=== PATIENT | female | born 1960 | race Caucasian/White ===

== ENCOUNTER 2025-05-17 18:55 | Emergency (ER) | payer MEDICARE, SELFPAY ==
--- OUTSIDE RECORDS SUMMARY | 2024-11-04 07:45 | XMS_ITS ---
Author Organization [facility] Address [address] [place] [address] Care Team Providers Care Dental Surgery Doctor Name Role Phone Ernie Ramirez Primary Care Provider Anya Foreman [phone] REASON FOR VISIT 6 mo per 06/06/24 tobbia ov/lg Encounters Encounter Location Date Provider Diagnosis [facility] [address] [place] [address], [place] [address] 11/04/2024 Anya Foreman Plan Of Treatment Next Appt Details Provider Name:Ernie Vega , 11/06/2025 01:00:00 PM, [address] [facility], [facility] [[email or web address] [address], [place], [id number], History and Physical Notes * HPI (History of Present Illness) Category Sub-Category Detail Notes Category Not es Provider Note Ms. Dover is a 64-year-old female with hypertension, hyperlipidemia, CAD status post [place] (2016), prior CVA, chronic atrial fibrillation, a thoracic aortic aneurysm, moderate to severe tricuspid regurgitation, moderate mitral regurgitation, and COPD. She returns today for a routine follow up. Previous testing: January 2022 treadmill Cardiolite showed a small area of ischemia in the anterior wall vs breast tissue artifact--EF 76%. June 2022 coronary calcium score was 612.4--269.3 in the RCA, 174.8 in the circumflex, and 168.2 in the LAD. Progress Notes * November VDOB: (65 yo F)Acc No.[id number]:11/04/2024 Progress Notes Patient: Shelbi souzaNovember Provider: Alan Foreman APN DOB:1960 A ge:64 Y S ex:Female Date:11/04/2024 Address:[address] [place] [address], [place], [id number] Pcp:Ernie Ramirez Subjective: * Chief Complaints: * 6 mo per 06/06/24 tobbia ov/lg * HPI: P rovider Note: Ms. Dover is a 64-year-old female with hypertension, hyperlipidemia, CAD status post [place] (2016), prior CVA, chronic atrial fibrillation, a thoracic aortic aneurysm, moderate to severe tricuspid regurgitation, moderate mitral regurgitation, and COPD. She returns today for a routine follow up. Previous testing: January 2022 treadmill Cardiolite showed a small area of ischemia in the anterior wall vs breast tissue artifact--EF 76%. June 2022 coronary calcium score was 612.4--269.3 in the RCA, 174.8 in the circumflex, and 168.2 in the LAD. Billing Information: * Procedure Codes: Care Plan Details* * Electronic signature of Joe Foreman APN on 05/17/2025 at 06:59 PM [employer] Sign off status: Pending * Provider: Alan Foreman APN Date: 0 11/04/2024 Generated for Danyell jewell/Duc/Darlinitting on: 07/18/2024 06:59 PM [employer]
[2025-05-17] VITALS (8 sets, daily range): BP systolic 105–135; BP diastolic 57–87; PULSE 70–85; RESP 12–23; TEMP 36.5; O2SAT 91–100; BMI 33.0
--- OUTSIDE RECORDS SUMMARY | 2025-05-17 18:59 | XMS_ITS | Patient Health Record ---
Author Organization [facility] Address [address] [address] Care Team Providers Care Cultural Centre Manager Name Role Phone Ernie Ramirez Primary Care Provider [phone] Umer Worthington Unavailable [phone] KellenAnya gandara Unavailable [phone] Allergies Allergen (clinical drug ingredient) Drug/Non Drug Allergy documented on EMR Reaction Allergy Type Onset Date Status ciprofloxacin Cipro angioedema Drug Allergy Ac tive rosuvastatin Rosuvastatin Myalgia Drug Allergy A ctive Results Component Value Reference Range Notes Influenza A/B - 12731 Reviewed date:08/01/2024 02:58:39 PM Interpretation: Performing Lab: Notes/Report: A - B - COVID-19 RAPID - [id number] Reviewed date:08/01/2024 03:17:49 PM Interpretation: Performing Lab: Notes/Report: COVID19 - Schedule Confirmation Reviewed date:05/01/2024 02:26:09 PM Interpretation: Performing Lab: Notes/Report: Bone Densitometry UA Dip / Urinalysis, Routine , Manual - [id number] Reviewed date:10/24/2024 04:43:36 PM Interpretation: Performing Lab: Notes/Report: Color yello Clarity slightlycloudy Glucose - Bilirubin - Ketones - Specific Mayo 1.015 Blood - pH 6.0 Protein - Urobilinogen,Semi-Qn - Nitrite, Urine - Leukocytes 1+ Reason For Referral Reason CAD, HFpEF please send referral to Dr Cj Katz, Cardiology in [place], [place] at [facility]. fax [phone] Diagnosis 1 Coronary artery dise ase involving seminole coronary artery of seminole heart with other form of angina pectoris (I25.118) Referral Organization [facility] Referring Provider First Name Ernie Referring Provider Last Name James Referring Provider [facility] shy[facility] or Group Practice Referral Priority Routine Reason CAD with angina, sev ere tricuspid regurgitation please send to [facility] per patient request. Diagnosis 1 Chest pain, unspecif ied type (R07.9) Referral Organization [facility] Referring Provider First Name Ernie Referring Provider Last Name James Referring Provider [facility] shyam Referred Provider [facility], Cardiology Referred Provider Specialty Cardiology Referral Priority Routine Medications Medication SIG (Take, Route, Frequency, Duration) Notes Start Date End Date Status Eliquis 5 MG Tablet 1 tablet Orally twice a day; Duration: 90 days Active DULoxetine HCl 60 MG Capsule Delayed Release Particles TAKE 1 CAPSULE BY MOUTH EVERY DAY Orally Once a day; Duration: 90 days Not-Taking Nitroglycerin 0.4 MG Tablet Sublingual 1 tablet under the tongue and allow to dissolve as needed. Take every 5 minutes up to 3 times if chest pain persists Sublingual Three times a day Active Vitamin D3 25 MCG (1000 UT) Tablet 1 tablet Orally Once a day Not-Taking Super B Complex Not- Taking Losartan Potassium 50 MG Tablet 1 tablet Orally daily; Duration: 90 days Active Pravastatin Sodium 80 MG Tablet 1 tablet Orally Once a day; Duration: 90 days 10/24/2024 Not-Taking Magnesium 250 MG Tablet 1 tablet with a meal Orally Once a day Not-Taking Colchicine 0.6 MG Tablet 2 tablets on first day, then 1 tablet a day thereafter Orally; Duration: 10 days 12/31/2024 Not-Taking Vitamin C 500 MG Capsule as directed Orally Active Vitamin B 12 500 MCG Tablet 2 tablet Orally Once a day Active Furosemide 40 MG Tablet 1 tablet as needed for 3 lb weight gain Orally Once a day; Duration: 30 days Active Osteo Bi-Flex One Per Day Active Potassium Chloride ER 10 mEq Capsule Extended Release TAKE ONE CAPSULE BY MOUTH EVERY DAY; Duration: 90 Unknown Albuterol Sulfate HFA 108 (90 Base) MCG/ACT Aerosol Solution 2 puffs as needed Inhalation every 4 -6hrs; Duration: 30 days prn Active Acetaminophen 325 MG Tablet 2 tablet as needed Orally every 6 hrs Active Linzess 72 MCG Capsule TAKE 1 capsule at least 30 minutes before the first meal of the day on an empty stomach Orally Once a day 30 days prn. Patient stated that if she doesn't eat in the morning, she doesn't take it. Not-Taking Metoprolol Tartrate 25 mg Tablet TAKE ONE TABLET BY MOUTH TWICE DAILY Active Co Q-10 Maximum Strength Active Isosorbide Mononitrate 20 MG Tablet Take 1 tablet by mouth twice daily Active Centrum Adult 50+ MultiGummies - Tablet Chewable as directed Orally Active Aspirin 81 MG Tablet Chewable 1 tablet Orally Once a day Active Immunizations Vaccine Route Administration Date Status Comments COVID-19 Vaccine (Moderna) Booster Unknown 06/09/2021 Administered COVID-19 Vaccine (Moderna) Dose #1 Unknown 08/20/2020 Administered COVID-19 Vaccine (Moderna) Dose #2 Unknown 09/17/2020 Administered Flucelvax IM Intramuscular 06/24/2020 Administered [facility] # 06600-627-92 Flucelvax Quadrivalent IM Intramuscular 03/22/2022 Administered [facility]#41110-488-89 Received verbal consent for vaccine from patient. No contraindications Influenza (whole), CPT 90853 Inactive Unknown 03/05/2016 Administered Influenza (whole), CPT 29252 Inactive Unknown 04/01/2019 Administered Social History Tobacco Use: Social History Observation Description Date Details (start date - stop date) Former Smoker NA - NA Social History Depression Screening Social Info Question Answer Notes depression screening findings Findings Positive (5+ without suicidality) PHQ-9 Little interest or pleasure in doing things Several days Feeling down, depressed, or hopeless Several day s Trouble falling or staying asleep, or sleeping t oo much Several days Feeling tired or having little energy More than half the days Poor appetite or overeating More than half the d ays Feeling bad about yourself, or that you are a failure, or have let yourself or your family down Several days Trouble concentrating on thi ngs, such as reading the newspaper or watching television Not at all Moving or speaking so slowly that other people could have noticed. Or the opposite ? being so fidgety or restless that you have been moving around a lot more than usual Not at all Thoughts that you would be b rigo off , or of hurting yourself in some way Not at all Total Score 8 Interpretation Mild Depression Drugs/Alcohol: Social Info Question Answer Notes Alcohol Screen (Audit-C) Did you have a drink containing alcohol in the past year? No Points 0 Interpretation Negative Drugs Have you used drugs other than those for medical reasons in the past 12 months? No Comprehensive Health Assessm ent Social Info Question Answer Notes *Social Determinants of Health Has lack of transportation kept you from medical appointments, meetings, work or from getting things needed for daily living? Yes it has kept me from medical appointments or from getting my medications Recently, have you worried t hat your food would run out before you got money to buy more? Yes, but we were able to find enough food to get through Do you feel physically and e motionally safe where you currently live? No Are you worried about losing your housing? No Tobacco Use: Social Info Question Answer Notes Tobacco Control (Standard) Tobacco use: Former smoker How long has it been since you last smoked? 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 ; Section Notes: caffeine - Coffee alcohol - occasional Smoked 1 pack of cigrrets a week for 2 years. quit 43 years old caffeine - Coffee alcohol - occasional caffeine - Coffee alcohol - occasional caffeine - Coffee alcohol - occasional caffeine - Coffee alcohol - occasional caffeine - caffeine - Coffee caffeine - Coffee alcohol - occasional caffeine - caffeine - caffeine - Coffee alcohol - occasional caffeine - Coffee alcohol - occasional caffeine - Coffee alcohol - occasional Smoked 1 pack of cigrrets a week for 2 years. quit 43 years old caffeine - Coffee alcohol - occasional Smoked 1 pack of cigrrets a week for 2 years. quit 43 years old caffeine - Coffee alcohol - occasional Smoked 1 pack of cigrrets a week for 2 years. quit 43 years old caffeine - Coffee alcohol - occasional Smoked 1 pack of cigrrets a week for 2 years. quit 43 years old caffeine - caffeine - Coffee alcohol - occasional caffeine - Coffee alcohol - occasional caffeine - caffeine - Coffee alcohol - occasional Smoked 1 pack of cigrrets a week for 2 years. quit 43 years old caffeine - Coffee alcohol - occasional caffeine - Coffee alcohol - occasional caffeine - Coffee alcohol - occasional Smoked 1 pack of cigrrets a week for 2 years. quit 43 years old caffeine - Coffee alcohol - occasional Smoked 1 pack of cigrrets a week for 2 years. quit 43 years old caffeine - Coffee alcohol - occasional caffeine - Coffee alcohol - occasional caffeine - Coffee alcohol - occasional Problems Problem Type SNOMED Code ICD Code Onset Dates Problem Status W/U Status Risk Notes Problem Anemia due to chronic blood loss (disorder) (459604745) Iron deficiency anemia secondary to blood loss (chronic) (D50.0) Active confirmed Problem Obesity due to excess calories (002231821) Other obesity due to excess calories (E66.09) Active confirmed Problem Hypertensive heart failure (50187824) Hypertensive heart disease with heart failure (I11.0) Active confirmed Problem Gastro-esophageal reflux disease without esophagitis (340613882) Gastro-esophageal reflux disease without esophagitis (K21.9) Active confirmed Problem Pain of right shoulder region (finding) (5158199725) Pain in right shoulder (M25.511) Active confirmed Problem Fibromyalgia (680185390) Fibromyalgia (M79.7) Active confirmed Problem Long-term current use of anticoagulant (427049598) superintendent container terminal (current) use of anticoagulants (Z79.01) Active confirmed Problem Irritable bowel syndrome characterized by constipation (464530492) Irritable bowel syndrome with constipation (K58.1) Active confirmed Problem Permanent atrial fibrillation (239950545) Permanent atrial fibrillation (I48.21) Active confirmed Problem Essential hypertension (57297331) Essential hypertension (I10) Active confirmed Problem Persistent atrial fibrillation (586774049) Persistent atrial fibrillation (I48.19) Active confirmed Problem Localized, secondary osteoarthritis of the shoulder region (187806629) Post-traumatic osteoarthritis of left shoulder (M19.112) Active confirmed Problem Chronic atrial fibrillation (496081200) Chronic atrial fibrillation (I48.20) Active confirmed Problem Atherosclerotic heart disease of seminole coronary artery without angina pectoris (065070387043047) Coronary artery disease involving seminole coronary artery of seminole heart without angina pectoris (I25.10) Active confirmed Problem Chest pain (84287527) Chest pain, unspecified type (R07.9) Active confirmed Problem Cerebrovascular accident (007000896) Cerebrovascular accident (CVA), unspecified mechanism (I63.9) Active confirmed Problem Tricuspid valve disorder (84127889) Severe tricuspid regurgitation (I07.1) Active confirmed Problem Bipolar disorder (84263178) Bipolar affective disorder, remission status unspecified (F31.9) Active confirmed Problem Mild intermittent asthma (942514428) Mild intermittent asthma in adult without complication (J45.20) Active confirmed Problem Low back pain (finding) (014559791) Low back pain without sciatica, unspecified back pain laterality, unspecified chronicity (M54.5) Active confirmed Problem Atherosclerotic heart disease of seminole coronary artery without angina pectoris (527889997379473) Arteriosclerosis of coronary artery (I25.10) Active confirmed Problem Urinary incontinence (615219565) Urinary incontinence in female (R32) Active confirmed Problem Hyperlipidemia (86012199) Hyperlipidemia (E78.5) Active confirmed Problem Solitary pulmonary nodule (059299023) Solitary pulmonary nodule on lung CT (R91.1) Active confirmed Problem Long-term current use of anticoagulant (686531664) Anticoagulated (Z79.01) Active confirmed Problem Angina co-occurrent and due to coronary arteriosclerosis (75160214692420423) Coronary artery disease involving seminole coronary artery of seminole heart with other form of angina pectoris (I25.118) Active confirmed Problem Mitral valve disorder (30981004) Moderate mitral regurgitation (I34.0) Active confirmed Problem Tricuspid valve disorder (54981285) Moderate tricuspid regurgitation (I07.1) Active confirmed Problem Thoracic aortic aneurysm without rupture (disorder) (49244719) Thoracic aneurysm without mention of rupture (I71.20) Active confirmed Problem Chronic diastolic heart failure (128521643) Chronic heart failure with preserved ejection fraction (HFpEF) (I50.32) Active confirmed Problem Cardiomegaly (9711376) Atrial dilatation, bilateral (I51.7) Active confirmed Problem Obese class II (finding) (203845013838606) Obesity, class 2 (E66.812) Active confirmed Vital Signs Heart Rate 87 /min 05/08/2025 Temperature 97.2 degrees Fahrenheit 05/08/2025 Respiratory Rate 20 /min 10/24/2024 Height-cm 170.18 cm 05/08/2025 Oximetry 99 % 05/08/2025 Blood pressure diastolic 82 mm Hg 05/08/2025 Weight-kg 103.24 kg 05/08/2025 Height 67 in 05/08/2025 Blood pressure systolic 124 mm Hg 05/08/2025 Weight 227.6 lbs 05/08/2025 BMI 35.64 kg/m2 05/08/2025 Encounters Encounter Location Date Provider Diagnosis [facility] [address] [place] [address] 06/06/2024 Umer Worthington Essential hypertensi on I10 ; SOB (shortness of breath) on exertion R06.02 ; Hyperlipidemia E78.5 ; Coronary artery disease involving seminole coronary artery of seminole heart without angina pectoris I25.10 ; Thoracic aneurysm without mention of rupture I71.20 ; Chronic heart failure with preserved ejection fraction (HFpEF) I50.32 ; Permanent atrial fibrillation I48.21 ; Swelling R60.9 ; Dizziness R42 ; Palpitations R00.2 ; Chest pressure R07.89 ; Moderate tricuspid regurgitation I07.1 ; Moderate mitral regurgitation I34.0 and Hypertensive heart disease with heart failure I11.[address] [place] [address] 10/24/2024 Ernie Ramirez Adverse effect of antihyperlipidemic and antiarteriosclerotic drugs, initial encounter T46.6X5A ; Hyperlipidemia E78.5 ; Myalgia, unspecified site M79.10 ; Urinary incontinence in female R32 ; Urine frequency R35.0 ; Dysuria R30.0 and Coronary artery disease involving seminole coronary artery of seminole heart with other form of angina pectoris I25.[address] [place] [address] 08/01/2024 Ernie Ramirez Chest congestion R09 .89 and Influenza A J10.[address] [place] [address] 05/08/2025 Ernie Ramirez Hospital discharge follow-up Z09 ; Chest pain, unspecified type R07.9 ; Severe tricuspid regurgitation I07.1 ; Atrial dilatation, bilateral I51.7 ; Permanent atrial fibrillation I48.21 ; Chronic heart failure with preserved ejection fraction (HFpEF) I50.32 ; Bipolar affective disorder, remission status unspecified F31.9 ; Obesity, class 2 E66.812 and Body mass index [BMI] 35.0-35.9, adult Z68.[address] [place] [address] 12/31/2024 Ernie Ramirez Hospital discharge follow-up Z09 ; Intentional overdose, subsequent encounter T50.902D and Acute gout of left foot, unspecified cause M10.9 [facility] [address] [place] [address] 07/29/2024 Ernie Ramirez Coronary artery dise ase involving seminole coronary artery of seminole heart with other form of angina pectoris I25.118 and Hospital discharge follow-up Z09 [facility] [address] [address] [place] [address] 05/08/2025 Ernie Ramirez [facility] [address] [address] [place] [address] 05/05/2025 Ernie Ramirez [facility] [address] [address] [place] [address] 04/29/2025 Ernie Ramirez Essential hypertensi on I10 [facility] [address] [address] [place] [address] 12/25/2024 Ernie Ramirez Chronic heart failur e with preserved ejection fraction (HFpEF) I50.32 [facility] [address] [facility] [address] [place] [address] 12/24/2024 Ernie Ramirez [facility] [address] [facility] [address] [place] [address] 12/24/2024 Ernie Ramirez [facility] [address] [place] [address] 08/21/2024 Umer Worthington [facility] [address] [facility] [address] [place] [address] 08/21/2024 Ernie Ramirez [facility] [address] [facility] [address] [place] [address] 08/19/2024 Ernie Ramirez [facility] [address] [place] [address] 08/19/2024 Umer Worthington Coronary artery dise ase involving seminole coronary artery of seminole heart with other form of angina pectoris I25.118 [facility] [address] [facility] [address] [place] [address] 07/22/2024 Ernie Ramirez [facility] [address] [facility] [address] [place] [address] 05/20/2024 Ernie Ramirez Persistent atrial fibrillation I48.19 ; Chronic heart failure with preserved ejection fraction (HFpEF) I50.32 and Essential hypertension I10 Assessments Encounter Date Diagnosis (ICD Code) Assessment Notes Treatment Notes Treatment Clinical Notes Section Notes 05/08/2025 Chest pain, unspecified type (ICD-10 - R07.9) reason for hospitalization; has had no further episodes since discharge was offered [facility] inpatient but she declined to do this 05/08/2025 Hospital discharge follow-up (ICD-10 - Z09) reviewed hospitalization documentation including: DC summary, H&P, consultation notes, lab results, imaging reports med rec performed today 04/29/2025 Essential hypertension (ICD-10 - I10) 12/31/2024 Hospital discharge follow-up (ICD-10 - Z09) reviewed hospitalization documentation including: DC summary, H&P, consultation notes, lab results, imaging reports med rec performed today 12/31/2024 Intentional overdose , subsequent encounter (ICD-10 - T50.902D) Reason for hospitalization; drug used: metoprololPatient denies suicidal ideation at today's visit Counseled patient on healthy coping mechanisms; strongly recommended referral to counseling however patient declines 12/25/2024 Chronic heart failur e with preserved ejection fraction (HFpEF) (ICD-10 - I50.32) 10/24/2024 Adverse effect of antihyperlipidemic and antiarteriosclerotic drugs, initial encounter (ICD-10 - T46.6X5A) Rosuvastatin Due to rosuvastatinResolved with discontinuation of rosuvastatin 10/24/2024 Hyperlipidemia (ICD-10 - E78.5) Chronic, variably controlled due to adverse effect of medication Significant comorbidities of CAD, thoracic aneurysm, history of strokeExperienced myalgia due to rosuvastatin; she has already discontinued thisInitiate pravastatin trialRecheck FLP 3 months 08/19/2024 Coronary artery disease involving seminole coronary artery of seminole heart with other form of angina pectoris (ICD-10 - I25.118) 08/01/2024 Influenza A (ICD-10 - J10.1) AcuteClose contact to known flu A caseTesting for flu A/B as well as COVID-negative today in clinicWill empirically treat with oseltamivir Counseled on supportive care at home 08/01/2024 Chest congestion (ICD-10 - R09.89) 07/29/2024 Coronary artery disease involving seminole coronary artery of seminole heart with other form of angina pectoris (ICD-10 - I25.118) chronic, stable but not at target refill long-acting nitrate, nitro tab, asa 81mg referral to different forest pathology associate professor per patient request 06/06/2024 Essential hypertension (ICD-10 - I10) 06/06/2024 SOB (shortness of breath) on exertion (ICD-10 - R06.02) 05/20/2024 Persistent atrial fibrillation (ICD-10 - I48.19) 05/20/2024 Chronic heart failur e with preserved ejection fraction (HFpEF) (ICD-10 - I50.32) 06/06/2024 Hyperlipidemia (ICD-10 - E78.5) Continue current dose of rosuvastatin for high-intensity statin. 07/29/2024 Hospital discharge follow-up (ICD-10 - Z09) reviewed hospitalization documentation including: DC summary, H&P, consultation notes, lab results, imaging reports med rec performed today 10/24/2024 Myalgia, unspecified site (ICD-10 - M79.10) Rosuvastatin Due to rosuvastatinResolved with discontinuation of rosuvastatin 12/31/2024 Acute gout of left foot, unspecified cause (ICD-10 - M10.9) acute, mild initiate colchicine f/u if problem worsens or fails to improve with regimen 05/08/2025 Severe tricuspid regurgitation (ICD-10 - I07.1) noted on echo from hospitalization 05/08/2025 Atrial dilatation, bilateral (ICD-10 - I51.7) noted on echo from hospitalization 05/20/2024 Essential hypertension (ICD-10 - I10) 06/06/2024 Coronary artery disease involving seminole coronary artery of seminole heart without angina pectoris (ICD-10 - I25.10) Per elevated coronary calcium score. Patient is not having anginal symptoms. However, if her symptoms worsen, we will consider repeating an ischemic work-up. 10/24/2024 Urinary incontinence in female (ICD-10 - R32) Chronic, poorly controlledReferral to Urology for further evaluation and management 06/06/2024 Thoracic aneurysm without mention of rupture (ICD-10 - I71.20) 10/24/2024 Urine frequency (ICD-10 - R35.0) 05/08/2025 Permanent atrial fibrillation (ICD-10 - I48.21) chronic, stable referral to cardiology 05/08/2025 Chronic heart failur e with preserved ejection fraction (HFpEF) (ICD-10 - I50.32) chronic, stable referral to cardiology 10/24/2024 Dysuria (ICD-10 - R30.0) She does not have UTI based on today's testingRecommend further evaluation by urology with suspect she has some form of bladder dysfunction 06/06/2024 Chronic heart failur e with preserved ejection fraction (HFpEF) (ICD-10 - I50.32) Continue current dose of furosemide and potassium supplementation. 06/06/2024 Permanent atrial fibrillation (ICD-10 - I48.21) Continue current dose of metoprolol for rate/rhythm control and Eliquis for stroke prevention. 10/24/2024 Coronary artery disease involving seminole coronary artery of seminole heart with other form of angina pectoris (ICD-10 - I25.118) Chronic, stableFacilitated scheduling appointment with cardiology at [facility] in [place] 05/08/2025 Bipolar affective disorder, remission status unspecified (ICD-10 - F31.9) chronic, stable, not currently on medication 05/08/2025 Obesity, class 2 (ICD-10 - E66.812) counseled healthy diet 06/06/2024 Swelling (ICD-10 - R60.9) 06/06/2024 Dizziness (ICD-10 - R42) 05/08/2025 Body mass index [BMI ] 35.0-35.9, adult (ICD-10 - Z68.35) 06/06/2024 Palpitations (ICD-10 - R00.2) 06/06/2024 Chest pressure (ICD-10 - R07.89) 06/06/2024 Moderate tricuspid regurgitation (ICD-10 - I07.1) Repeat echo in March 2025. 06/06/2024 Moderate mitral regurgitation (ICD-10 - I34.0) Repeat echo in March 2025. 06/06/2024 Hypertensive heart disease with heart failure (ICD-10 - I11.0) BP is well controlled. Continue current dose of losartan and metoprolol. 06/06/2024 Other Follow up in 6 months. Nasrin Peres, am scribing for Umer Worthington MD.Umer Peres MD, personally performed the services prescribed in this documentati on, as scribed by Nasrin Stapleton, and it is both accurate and complete. Plan Of Treatment Pending Test Test Name Order Date Blood Urea Nitrogen (BUN) 41237 11/27/19 Creatinine (B) 84888 11/22/2019 Creatinine (B) 03591 11/27/2019 Bone Densitometry-63206 04/30/2024 Mammogram Screen Quang Eliezer w/CAD-51657 Bronchial Provocation Test-47018,15280 0 06/09/2021 Electrocardiogram (EKG) - 17918 06/06/19 Next Appt Details Provider Name:Ernie Vega , 11/06/2025 01:00:00 PM, [address], [address], Insurance Providers Payer Name Payer Address Payer Phone Subscriber Number Group Number Insured Name Patient Relationship to Insured Coverage Start Date Coverage End Date [employer] Replacement [address] [address] [place], [place] [id number] 1 [id number] November Self - patient is the insured Medications Administered Medication Instructions Date of Administration Dosage Notes cefTRIAXone Sodium 02/28/2022 1 g [facility]#[phone] Medical (General) History Medical History History ICD Code Arthritis Anxiety/depression HTN DJD Hospitalization History Reason Date(Month/Year) BH observation CP 04/29-04/30 Suicidal ideation 12/23/24 ER -2023 stroke, GI bleed 12/09/22 A-fib 05/2021 myocardial infarction 07/2016
--- NOTE | 2025-05-17 19:04 | XRR_ITS ---
PROCEDURE INFORMATION: Exam: XR Chest Exam date and time: 05/17/2025 8:10 PM Age: 65 years old Clinical indication: Pain; Chest pressure; Additional info: Chest pain; Copd TECHNIQUE: Imaging protocol: Radiologic exam of the chest. Views: 1 view. COMPARISON: No relevant prior studies available. FINDINGS: Lungs: Clear, symmetrically inflated lungs. Pleural spaces: No pleural effusion. No pneumothorax. Heart/Mediastinum: Cardiac silhouette is normal in size for technique. Bones/joints: Severe arthropathy of each shoulder. No acute bony abnormality. XR/XR chest 1V portable [id number] IMPRESSION: No acute cardiopulmonary abnormality.
--- NOTE | 2025-05-17 19:05 | ECG_ITS ---
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 Measurements Intervals [place] Rate: 72 P: 0 CO: 0 QRS: 17 QRSD: 88 T: 243 QT: 441 QTc: 485 Interpretive Statements COARSE ATRIAL FIBRILLATION ST DEVIATION AND MODERATE T-WAVE ABNORMALITY, CONSIDER LATERAL ISCHEMIA [-0.1+ mV T-WAVE IN I/aVL/V5/V6] No previous ECG available for comparison Electronically Signed On 05-18-2025 16:58:22 TERRAZZO MECHANIC HELPER by Shivam Haas M.D. [email or web address]
--- NOTE | 2025-05-17 20:05 | ECG_ITS ---
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 Measurements Intervals [place] Rate: 73 P: 0 CA: 0 QRS: 21 QRSD: 94 T: 235 QT: 460 QTc: 507 Interpretive Statements ATRIAL FIBRILLATION ST DEVIATION AND MODERATE T-WAVE ABNORMALITY, CONSIDER LATERAL ISCHEMIA [-0.1+ mV T-WAVE IN I/aVL/V5/V6] ST DEVIATION AND MODERATE T-WAVE ABNORMALITY, CONSIDER ANTERIOR ISCHEMIA [-0.1+ mV T-WAVE IN II/aVF] COMPARED TO ECG ON 05/17/25 AT 19:11, NO SIGNIFICANT CHANGE Electronically Signed On 05-18-2025 17:06:27 CREATIVE SERVICES WRITER by Shivam Haas M.D. [email or web address]
[2025-05-17 20:06] LABS: Hematocrit 45.8 % (36-47); Hemoglobin 15.20 g/dL (11.27-16.99); Mean Corpuscular HGB Conc 33.2 g/dL (30-55); Mean Corpuscular Hemoglobin 28.0 pg (27-33); Mean Corpuscular Volume 84.3 fl (85-98); Nucleated Red Blood Cells % 0 %; Platelet Count 277 10^3/cmm (157-399); Red Blood Count 5.43 10^6/uL (3.85-5.65); White Blood Count 10.27 10^3/uL (3.29-11.43)
[2025-05-17 20:44] LABS: Troponin(5th) Baseline 15 ng/L (0-10)
[2025-05-17 21:04] LABS: Alanine Aminotransferase 14 U/L (0-33); Albumin Level 4.2 g/dL (3.5-5.2); Alkaline Phosphatase 111 U/L (35-105); Anion Gap 19.0 (5-19); Aspartate Amino Transferase 19 U/L (0-32); Blood Urea Nitrogen 22 mg/dL (8-23); Calcium 9.5 mg/dL (8.5-10.5); Carbon Dioxide 22 mmol/L (22-29); Chloride 102 mmol/L (98-107); Globulin 2.9 g/dL (1.3-4.6); Glucose 109 mg/dL (65-115); Osmolality Calculated 292 mOsm/kg (285-295); Potassium 4.0 mmol/L (3.5-5.1); Sodium 139 mmol/L (136-145); Total Protein 7.1 g/dL (6.6-8.7)
--- NOTE | 2025-05-17 22:31 | ED_ITS ---
HPI - Chest Pain 2 General: Chief Complaint: Chest Pain Stated Complaint: CP Time Seen by Provider: 05/17/25 20:12 History of Present Illness: Patient is a 65-year-old female presenting with chest pain that started approximately one week ago. She describes the pain as occurring about 12 times per day, including an episode during the current visit. She characterizes the pain as 'like somebody's going in there and squeezing all my heart.' Patient reports she was recently seen at [facility] where she states they wanted her to have a cardiac angiogram but did not adequately explain the procedure. She reports possible heart attack last week, but states that no one reviewed her test results with her. She reports having an ultrasound performed at the previous facility. She left AGAINST MEDICAL ADVICE from that facility. Today, she presented to the ED because she 'thought I was gonna pass out' and was home alone with children. She reports her pain was severe enough that she asked to be brought to the hospital. Related Data Allergies Allergy/AdvReac Type Severity Reaction Status Date / Time ciprofloxacin Allergy ALGY-Anaphy Verified 05/17/25 19:06 laxis [id number]-[id number] Reductase Allergy ALGY-Joint Verified 05/17/25 19:06 Inhibitor Pain Physical Exam 2 Const: COMMON NORMALS: no acute distress GENERAL APPEARANCE: cooperative; not ill appearing and not frail appearing HENMT: COMMON NORMALS: normocephalic, atraumatic and Normal external nose present HEAD & SCALP: normocephalic and atraumatic FACE & SINUS: normal facial exam and face symmetric NOSE: Normal external nose present Eye: COMMON NORMALS: Equal, round and reactive pupils present and EOMs intact bilaterally PUPIL: Yes Equal, round and reactive pupils present Neck/C-Spine: GENERAL: Yes trachea midline Chest: CHEST: Yes Symmetrical chest wall rise Resp: COMMON NORMALS: normal respiratory effort, No retractions, No use of accessory muscles and clear to auscultation bilaterally AUSCULTATION: clear to auscultation bilaterally Cardio: COMMON NORMALS: regular rate and regular rhythm RATE: regular rate RHYTHM: regular rhythm GI: COMMON NORMALS: Normal to inspection, nondistended, normoactive bowel sounds present Extremity: COMMON NORMALS: no pedal edema Neuro: BRETT COMA SCALE: document GCS findings [place] coma scale eye opening: Spontaneous Brett coma scale verbal response: Orientated Brett coma scale motor response: Obey commands Brett coma scale total score: 15 S ENSORY EXAM: Yes extremities (intact) Psych: COMMON NORMALS: speech normal SPEECH: Yes normal speech Skin: COMMON NORMALS: no rashes or lesions noted GENERAL SKIN EXAM: no rashes or lesions noted Course 2 Vital Signs: Vital signs: Vital Signs Temperature 97.7 F 05/17/25 18:58 Pulse Rate 72 05/17/25 22:30 Respiratory Rate 16 05/17/25 22:30 Blood Pressure 105/57 05/17/25 22:30 Pulse Oximetry 98 05/17/25 22:30 Oxygen Delivery Me thod Room Air 05/17/25 18:58 MDM - Chest Pain Medical Decision Making The patient's vitals are stable here. She does not appear in pain. CBC is normal. BMP is normal. Chest x-ray is nonacute. First troponin is 15 with a 60-minute troponin of 14. EKG is nonacute. In the absence of pain currently, with the above findings, she is stable for discharge. Will ask case management to make her an appointment with cardiology for next week. Referrals been placed. She knows to return for worsening symptoms in the meantime. Lab Data 05/17/25 19:59 05/17/25 19:59 Radiology Impressions Chest X-Ray 05/17/25 19:04 IMPRESSION: No acute cardiopulmonary abnormality. Laboratory Results WBC 10.27 10^3/uL (3.29-11.43) 05/17/25 19:59 RBC 5.43 10^6/uL (3.85-5.65) 05/17/25 19:59 Hgb 15.20 g/dL (11.27-16.99) 05/17/25 19:59 Hct 45.8 % (36-47) 05/17/25 19:59 MCV 84.3 fl (85-98) L 05/17/25 19:59 MCH 28.0 pg (27-33) 05/17/25 19:59 MCHC 33.2 g/dL (30-55) 05/17/25 19:59 RDW 15.5 % (12.1-15.1) H 05/17/25 19:59 Plt Count 277 10^3/cmm (157-399) 05/17/25 19:59 MPV 11.3 fL (7.4-10.4) H 05/17/25 19:59 Neut % (Auto) 59.4 % 05/17/25 19:59 Lymph % (Auto) 28.4 % 05/17/25 19:59 [place] % (Auto) 9.0 % 05/17/25 19:59 Eos % (Auto) 1.9 % 05/17/25 19:59 Baso % (Auto) 0.9 % 05/17/25 19:59 Neut # (Auto) 6.11 10^3/uL (1.8-7.7) 05/17/25 19:59 Lymph # (Auto) 2.9 10^3/uL (0.8-4.8) 05/17/25 19:59 [place] # (Auto) 0.9 10^3/uL (0.2-0.9) 05/17/25 19:59 Eos # (Auto) 0.2 10^3/uL (0.0-0.8) 05/17/25 19:59 Baso # (Auto) 0.1 10^3/uL (0.0-0.1) 05/17/25 19:59 Nucleated RBC % (auto) 0 % 05/17/25 19:59 Nucleated RBCs # 0.0 /100WBC 05/17/25 19:59 Sodium 139 mmol/L (136-145) 05/17/25 19:59 Potassium 4.0 mmol/L (3.5-5.1) 05/17/25 19:59 Chloride 102 mmol/L (98-107) 05/17/25 19:59 Carbon Dioxide 22 mmol/L (22-29) 05/17/25 19:59 Anion Gap 19.0 (5-19) 05/17/25 19:59 BUN 22 mg/dL (8-23) 05/17/25 19:59 Creatinine 1.0 mg/dL (0.5-0.9) H 05/17/25 19:59 GFR Calculation 55.3 mL/min (90-130) L 05/17/25 19:59 Glucose 109 mg/dL (65-115) 05/17/25 19:59 Calculated Osmolality 292 mOsm/kg (285-295) 05/17/25 19:59 Calcium 9.5 mg/dL (8.5-10.5) 05/17/25 19:59 Total Bilirubin 0.6 mg/dL (0.15-1.2) 05/17/25 19:59 AST 19 U/L (0-32) 05/17/25 19:59 ALT 14 U/L (0-33) 05/17/25 19:59 Alkaline Phosphatase 111 U/L (35-105) H 05/17/25 19:59 Troponin T Baseline 15 ng/L (0-10) H 05/17/25 19:59 Troponin T 60 Minute 14.38 ng/L (0-10) H 05/17/25 20:37 Delta Troponin T -0.62 ABS# (0-10) L 05/17/25 20:37 Total Protein 7.1 g/dL (6.6-8.7) 05/17/25 19:59 Albumin 4.2 g/dL (3.5-5.2) 05/17/25 19:59 Globulin 2.9 g/dL (1.3-4.6) 05/17/25 19:59 All radiology interpretation(s) finalized by discharge EKG Data EKG 1: Interpretation: EKG time 2046, read 2049. Atrial fibrillation. Normal axis. Rate of 75. QTc is 485. QRS is 94. No acute ST wave changes. Discharge Plan Discharge Patient Disposition: Home Clinical Impression: Chest pain Condition: Stable Discharge Orders: Discharge ED (Routine); Ordered 05/17/25 Ordered By: Clovis Womack Referrals: Ritchie Davison MD [Primary Care Provider, [facility]] Patient Instructions: Chest Pain (ED), Opioid Safety, Pain Management, Patient Portal & Vaishnavi Instructions Activity Restrictions/Additional Instructions: Case management will contact you Monday regarding a follow-up appointment with cardiology. Return in the meantime for worsening pain, worsening shortness of breath, any other concerning symptoms. Print Language: Romansh Coding Level of Care Code ED Meat Carver for Chg Fwd Heart Score HEART Score Components History: Slightly Suspicous EKG: Non-specific Changes Age: 65 or more yrs Risk Factors: 1 or 2 Risk Factors Troponin: Baseline Trop <16 ng/L HEART Score RESULT HEART Score: 4
== END 2025-05-17 22:50 | disposition home or self-care (01) ==
PROVIDERS: Emergency Provider Emergency Medicine; Family Provider Family Medicine; PCP Family Medicine
DX: R07.9 Chest pain, unspecified (principal)
CPT/HCPCS: 36415; 71045; 80053; 84484; 85025; 93005; 99285